=== PATIENT | female | born 2000 | race Caucasian/White ===

== ENCOUNTER → 2020-01-28 16:21 | Outpatient (CLI) | payer OTHER, SELFPAY ==
[2020-01-28 17:54] LABS: Free T4, Direct Thyroxine 0.79 ng/dL (0.78-2.19); Prolactin 11.8 ng/mL (3.0-18.6)
== END ==
PROVIDERS: Family Provider Family Medicine; PCP Obstetrics & Gynecology; Referring Provider Obstetrics & Gynecology; Visit Provider Obstetrics & Gynecology
DX: N91.1 Secondary amenorrhea (principal)
CPT/HCPCS: 36415; 83001; 84146; 84439; 84443

== ENCOUNTER → 2021-07-04 15:16 | Outpatient (CLI) | payer OTHER, SELFPAY ==
[2021-07-04 16:38] LABS: COVID19 -Nasal RAPID Negative (Negative)
== END ==
PROVIDERS: Family Provider Family Medicine; PCP Family Medicine; Referring Provider Nurse Practitioner Family; Visit Provider Nurse Practitioner Family
DX: Z20.822 Contact with and (suspected) exposure to COVID-19 (principal)
CPT/HCPCS: 87635

== ENCOUNTER → 2022-06-21 11:16 | Outpatient (ROUT) | payer OTHER, SELFPAY ==
[2022-06-21 12:21] LABS: Influenza A - CEPHEID Flu A NEGATIVE (NEGATIVE); Influenza B - CEPHEID Flu B NEGATIVE (NEGATIVE); Respiratory Syncytial Virus Negative (Negative)
[2022-06-21 12:25] LABS: COVID-19 CEPHEID 4-PLEX PCR Negative (Negative)
== END ==
PROVIDERS: Visit Provider Family Medicine
DX: J02.9 Acute pharyngitis, unspecified (principal); R68.83 Chills (without fever)
CPT/HCPCS: 0241U

== ENCOUNTER → 2022-07-02 10:18 | Outpatient (CLI) | payer OTHER, SELFPAY ==
--- NOTE | 2022-07-02 | DI.US.S_ITS ---
PROCEDURE: US PELVIC COMPLETE INDICATIONS: AMENORRHEA TECHNIQUE: Real-time scanning was performed of the pelvic organs, with image documentation. Additional endovaginal scanning was necessary due to incomplete visualization of the adnexal and endometrial structures by transabdominal scanning. COMPARISON: None. FINDINGS: Uterus: Uterus is anteverted and normal in size at 5.6 x 3.2 x 2.2 cm. The myometrium is homogeneous. The endometrium measures 3 mm combined thickness. Suggestion of arcuate uterine morphology. Ovaries: The right ovary measures 4.0 x 2.4 x 2.1 cm, with a calculated ovarian volume of 10.5 cc. The left ovary measures 4.1 x 2.5 x 2.3 cm, with a calculated ovarian volume of 12.6 cc. The ovaries have a normal sonographic appearance. Greater than 30 follicles are noted in each of the bilateral ovaries. No adnexal masses are seen. Other: No pathologic free abdominal or pelvic fluid. IMPRESSION: 1. Greater than 30 follicles noted in each ovary with prominent left ovarian volume. Findings are suggestive of polycystic ovarian syndrome. 2. Suggestion of possible arcuate uterine morphology. Consider further evaluation with pelvic MRI. 3. No acute sonographic abnormalities identified in the pelvis. We strive to produce accurate, complete, and clear reports of imaging services. To assist us in improving patient care, this report was composed using standard report templates and voice recognition software. Therefore, it may contain abnormal punctuation, insertions and/or omissions. Occasional wrong-word or sound-alike substitutions may occur. Though we review the report and make efforts to correct it, we do recommend that the report be read carefully in proper context to recognize any text inaccuracies. Dictated by: Shine Slade M.D. on 07/02/2022 at 15:47 Approved by: Shine Slade M.D. on 07/02/2022 at 15:52
== END ==
PROVIDERS: Family Provider Family Medicine; PCP Family Medicine; Referring Provider Registered Nurse; Visit Provider Registered Nurse
DX: N91.2 Amenorrhea, unspecified (principal)
CPT/HCPCS: 76830; 76856

== ENCOUNTER → 2022-09-05 08:59 | Outpatient (CLI) | payer OTHER, SELFPAY ==
[2022-09-05 10:23] LABS: Glucose 93 mg/dL (70-100)
[2022-09-05 10:37] LABS: Follicle Stimulating Hormone 4.79 mIU/mL
[2022-09-05 10:42] LABS: Free T4, Direct Thyroxine 0.92 ng/dL (0.78-2.19)
[2022-09-05 10:56] LABS: Thyroid Stimulating Hormone 0.761 uIU/mL (0.47-4.68)
[2022-09-07 06:36] LABS: Insulin Level Total 3.7 uIU/mL (2.6-24.9)
[2022-09-09 17:36] LABS: Luteinizing Hormone 5.74 mIU/mL
== END ==
PROVIDERS: Family Provider Family Medicine; PCP Family Medicine; Referring Provider Obstetrics & Gynecology; Visit Provider Obstetrics & Gynecology
DX: E03.9 Hypothyroidism, unspecified (principal); E28.2 Polycystic ovarian syndrome
CPT/HCPCS: 36415; 82947; 83001; 83002; 83525; 84439; 84443

== ENCOUNTER → 2023-06-12 15:34 | Outpatient (CLI) | payer OTHER, SELFPAY | PROVIDERS: Family Provider Family Medicine; PCP Family Medicine; Visit Provider Nurse Practitioner Family | DX: N89.8 Other specified noninflammatory disorders of vagina (principal); R30.0 Dysuria; R39.15 Urgency of urination | CPT/HCPCS: 87086; 87210 ==